=== PATIENT | male | born 1985 | race Caucasian/White ===

== ENCOUNTER 2020-06-25 08:44 | Emergency (ER) | payer MEDICAID, SELFPAY ==
[~2020-06-25] VITALS: Ht 170.2 cm; Wt 81.6 kg
[2020-06-25 08:47] VITALS: BP 146/85; Ht 170.2 cm; Wt 81.6 kg
== END 2020-06-25 09:50 | disposition home or self-care (01) ==
LOC: ED 08:44
DX: U07.1 COVID-19 (principal)
CPT/HCPCS: U0003-CS